=== PATIENT | male | born 1955 | race Caucasian/White ===

== ENCOUNTER 2020-05-23 20:54 | Emergency (ER) | payer MEDICARE, SELFPAY ==
[2020-05-23 21:29] VITALS: BP 114/77; PULSE 67; RESP 16; TEMP 36.8; O2SAT 93; BMI 26.6
--- NOTE | 2020-05-23 21:34 | ED_ITS ---
HPI - Dental/Oral General: Chief complaint: Dental/Oral Stated complaint: dental/left lower jaw Time Seen by Provider: 05/23/20 21:34 History of Present Illness: HPI Narrative: Patient is a 65-year-old male comes to the ED with dental pain. Pain is on right lower jawline located around tooth #28 and 29. He has been having pain there for couple days and says today he woke up and noticed he is having some swelling on his lower jaw. He says his pain is manageable with extra strength Tylenol. He says he is going to contact a dentist and get set up with an appointment. Associated symptoms: Denies fever(s) or odynophagia Review of Systems Const: Denies: fever(s), chills or fatigue Eyes: Denies: change in vision or eye discomfort ENMT: Reports: dental pain; Denies: throat pain, odynophagia, nasal discharge or nasal congestion Card: Denies: chest pain, palpitations, edema, swelling of feet/ankles, dyspn ea on exertion or orthopnea Resp: Denies: dyspnea, productive cough or non-productive cough GI: Denies: abdominal pain, nausea, vomiting, diarrhea, constipation or hematochezia : Denies: flank pain, difficulty urinating, dysuria or hematuria Musc: Denies: neck pain, back pain or extremity swelling Skin/Breast: Denies: rash or new lesions Neuro: Denies: headache(s), numbness in extremities or weakness in extremities Physical Exam Const: COMMON NORMALS: no acute distress, patient oriented x3, healthy appearing and alert GENERAL APPEARANCE: cooperative and comfortable HENMT: COMMON NORMALS: normocephalic HEAD & SCALP: normocephalic MOUTH: Normal oral and palatal mucosa present TEETH & GINGIVA: Yes caries, Yes gingiva abnormal edematous (Around tooth #28 and 29.) and tender (Around tooth #28 and 29.) and Yes poor dentition THROAT: posterior oropharynx normal and uvula midline Eye: COMMON NORMALS: Equal, round and reactive pupils present PUPIL: Yes Equal, round and reactive pupils present Neck/C-Spine: COMMON NORMALS: supple GENERAL: Yes normal visual inspection Resp: COMMON NORMALS: normal respiratory effort, No retractions, No use of accessory muscles and clear to auscultation bilaterally AUSCULTATION: clear to auscultation bilaterally Cardio: COMMON NORMALS: regular rate, regular rhythm, S1 normal heart sound present, S2 normal heart sound present, No gallops present (Cardio), No clicks present (Cardio), No murmurs present (Cardio) and Peripheral pulses 2+ throughout RATE: regular rate RHYTHM: regular rhythm HEART SOUNDS: S1 normal heart sound present and S2 normal heart sound present PERIPHERAL PULSES: Peripheral pulses 2+ throughout GI: COMMON NORMALS: Normal to inspection, nondistended, normoactive bowel sounds present, Soft to palpation, non-tender and no masses PALPATION: Yes Soft to palpation : COMMON NORMALS: Yes no CVA tenderness BLADDER/KIDNEY EXAM: Yes no CVA tenderness Back/Pelvis: COMMON NORMALS: no CVA tenderness Extremity: COMMON NORMALS: normal to inspection Neuro: COMMON NORMALS: patient oriented x3 and moves all extremities SENSORIUM/ORIENTATION: Yes alert Skin: GENERAL SKIN EXAM: dry skin Course Vital Signs: Vital signs: Vital Signs Temperature 98.2 F 05/23/20 21:29 Pulse Rate 67 05/23/20 21:29 Respiratory Rate 16 05/23/20 21:29 Blood Pressure 114/77 05/23/20 21:29 Pulse Oximetry 93 05/23/20 21:29 MDM - Dental/Oral MDM Narrative: Medical decision making narrative: Patient is a 65-year-old male comes to the ED with right lower jaw dental pain. Patient has extensive dental caries and had some gingival edema and tenderness around tooth #28 and 29. Patient was discharged with a prescription of clindamycin and told to take [id number] Tylenol or ibuprofen for pain. He said he is can call dentist this week to get appointment set up. Return to ED precautions given. Patient understood and agreed with plan. Discharge Plan Discharge Patient Disposition: Home Clinical Impression: Pain due to dental caries Condition: Stable Prescriptions: New clindamycin HCl 150 mg capsule 300 mg PO QID 7 Days Qty: 56 RF: 0 Discharge Orders: Discharge Order (Routine); Ordered 05/23/20 Ordered By: Chay Duckworth Referrals: Desire Stallworth MD [Primary Care Provider] - Discharge Diet: Regular Discharge Activity: Resume usual activity Patient Instructions: Dental Caries (ED) Activity Restrictions/Additional Instructions: Call dentist and get set up with an appointment for them to address dental pain. Take medications as prescribed. Take [id number] ibuprofen or Tylenol for any pain. Return to the ER or your medical provider if condition worsens. Please read and understand discharge instructions. If any questions, please ask. Coding Level of Care Code ED Filling Operator for Ryley Fwsydney Exam Comprehensive
[2020-05-23] MEDS: clindamycin 150 mg Capsule 300 MG PO (21:53)
== END 2020-05-23 21:56 | disposition home or self-care (01) ==
PROVIDERS: Emergency Provider Physician Assistant; PCP Family Medicine
DX: K02.9 Dental caries, unspecified (principal); K06.1 Gingival enlargement
CPT/HCPCS: 12345; 99281; 99283

== ENCOUNTER 2020-07-01 09:18 | Emergency (ER) | payer MEDICARE, SELFPAY ==
[2020-07-01] VITALS (7 sets, daily range): BP systolic 104–128; BP diastolic 76–89; PULSE 63–79; RESP 15–18; TEMP 36.3–36.6; O2SAT 94–97; BMI 26.6
--- NOTE | 2020-07-01 09:38 | W.ED.GIBLEED ---
HPI - GI Bleed General: Chief complaint: GI Bleed Stated complaint: BLOOD IN STOOL Time Seen by Provider: 07/01/20 09:36 History of Present Illness: HPI Narrative: 65-year-old male comes in with reported blood in his stool. Patient states that last night he had eaten some chicken noodle soup and about 15 to 30 minutes after eating the soup he threw up everything he had eaten during the day. Patient then had some large bowel movements. This morning at about 5:00 patient had more abdominal cramping and went to the bathroom and had bowel movement with blood in it. Patient had another bowel movement later with another large amount of blood in it. MD complaint: gross hematochezia Associated symptoms: Reports abdominal pain Review of Systems General: Reports: 10 or more systems reviewed and unremarkable except in HPI and below GI: Reports: abdominal pain and hematochezia PFS ED PFSH: Social History (Updated 07/01/20 @ 09:33 by Benjamin Bergeron RN) Smoking and tobacco status: never smoked Alcohol intake: never Substance/Drug Use: current Substance/Drug use frequency: daily Substance/Drug use type: Marijuana Physical Exam Const: COMMON NORMALS: no acute distress and patient oriented x3 GENERAL APPEARANCE: cooperative HENMT: COMMON NORMALS: normocephalic and Normal external nose present HEAD & SCALP: normal to inspection and normocephalic NOSE: Normal external nose present MOUTH: Normal oral and palatal mucosa present Eye: GENERAL EYE: appearance normal, both eyes and all related structures Neck/C-Spine: COMMON NORMALS: full ROM Chest: COMMONS NORMALS: normal inspection of the chest Resp: COMMON NORMALS: normal respiratory effort EFFORT & INSPECTION: Yes able to speak in complete sentences Cardio: COMMON NORMALS: regular rate and regular rhythm RATE: regular rate RHYTHM: regular rhythm GI: COMMON NORMALS: Soft to palpation INSPECTION: Yes normal to inspection AUSCULTATION: Yes normoactive bowel sounds PALPATION: Yes Soft to palpation and Yes Tenderness to palpation present (GI) Details: LLQ RECTAL EXAM: Yes visual inspection normal, Yes normal sphincter tone and Yes heme positive stool Extremity: COMMON NORMALS: normal to inspection Neuro: COMMON NORMALS: patient oriented x3 and moves all extremities Psych: COMMON NORMALS: mental status grossly normal and cooperative Skin: COMMON NORMALS: no rashes or lesions noted GENERAL SKIN EXAM: no rashes or lesions noted Course Vital Signs: Vital signs: Vital Signs Temperature 97.9 F 07/01/20 13:02 Pulse Rate 79 07/01/20 13:02 Respiratory Rate 18 07/01/20 13:02 Blood Pressure 127/89 07/01/20 13:02 Pulse Oximetry 97 07/01/20 13:02 MDM - GI Bleed MDM Narrative: Medical decision making narrative: Patient came to the ER for concerns of blood in stool. Patient reports that he had the episode nausea and vomiting last night and then started having stools with blood in it this morning. On exam patient's abdomen soft with some tenderness in the left lower quadrant. Rectal exam was normal. No signs of sophie blood was noted. Hemoccult was positive though for blood. Differential diagnosis includes but not limited to GI bleed, diverticulitis, polyp, infectious diarrhea. Laboratory values noted a 12,000 white count, CMP was normal, hemoglobin was 17.2 and hematocrit was 51.9. CT scan of the abdomen pelvis noted some diverticulosis but no sign of infection or abscess. Reviewed exam with patient recommended treatment for infectious diarrhea with Cipro and Flagyl. Patient reported understanding and agreed to plan. Also recommended patient have colonoscopy due to blood in stool, patient was agreeable we arrange for a follow-up appointment with surgeon for further evaluation and treatment. Lab Data: Labs: Lab Results 07/01/20 07/01/20 Range/Units 09:50 09:50 WBC 12.9 H (4.0-10.0) 10^3/ uL RBC 5.72 H (4.1-5.3) 10^6/u L Hgb 17.2 H (11.7-16.6) g/dL Hct 51.9 (42.0-52.0) % MCV 90.7 (80-94) fL MCH 30.1 (28.0-34.0) pg MCHC 33.1 (30.0-36.0) g/dL RDW 12.2 (12.1-15.1) % Plt Count 279 (130-400) 10^3/c mm MPV 10.0 (7.4-10.4) fL Neut % (Auto) 75.0 % Lymph % (Auto) 18.8 % Platte % (Auto) 4.5 % Eos % (Auto) 0.9 % Baso % (Auto) 0.4 % Neut # (Auto) 9.69 H (1.8-7.7) 10^3/u L Lymph # (Auto) 2.4 (0.8-4.8) 10^3/u L Platte # (Auto) 0.6 (0.2-0.9) 10^3/u L Eos # (Auto) 0.1 (0.0-0.8) 10^3/u L Baso # (Auto) 0.1 (0.0-0.1) 10^3/u L Nucleated RBC % (a uto) 0 % Nucleated RBCs # 0.0 /100WBC Sodium 139 (136-145) mmol/L Potassium 4.3 (3.5-5.1) mmol/L Chloride 104 (98-107) mmol/L Carbon Dioxide 26 (22-29) mmol/L Anion Gap 13.3 (5-19) BUN 14 (8-23) mg/dL Creatinine 0.8 (0.7-1.2) mg/dL GFR Calculation 97.3 (90-130) mL/min Glucose 112 (65-115) mg/dL Calculated Osmolal ity 289 (285-295) mOsm/k g Calcium 9.5 (8.5-10.5) mg/dL Total Bilirubin 1.6 H (0.15-1.2) mg/dL AST 12 (0-40) U/L ALT 21 (0-41) U/L Alkaline Phosphata se 92 (40-130) IU/L Total Protein 6.8 (6.6-8.7) g/dL Albumin 4.5 (3.5-5.2) g/dL Globulin 2.3 (1.3-4.6) g/dL Discharge Plan Discharge Patient Disposition: Home Clinical Impression: Hematochezia, Infectious diarrhea, Diverticulosis Condition: Stable Prescriptions: New Cipro 500 mg tablet 500 mg PO BID Qty: 10 RF: 0 metronidazole 500 mg tablet 500 mg PO BID Qty: 10 RF: 0 No Action Tylenol 325 mg Tablet 325 - 650 mg PO Q6H PRN (Reason: Pain) RF: 0 Discharge Orders: Discharge ED (Routine); Ordered 07/01/20 Ordered By: Willy Mckenna Referrals: Desire Stallworth MD [Primary Care Provider] - Discharge Diet: Usual diet Discharge Activity: Increase activity as tolerated Activity Restrictions/Additional Instructions: Drink plenty of fluids. Take medications as directed. Healthy diet and activity. Follow-up with surgeon for colonoscopy for further evaluation of blood in stool. Return to the emergency department for new concerns. Coding Level of Care Code ED Press Breaker for Ryley Fwd Exam Comprehensive
[2020-07-01] MEDS: famotidine 20 mg/2 mL INJ 40 MG IVP (10:08)
[2020-07-01] MEDS: sodium chloride 0.9% 500 ML 999 ML IV (10:08)
[2020-07-01 10:42] LABS: Basophils # 0.1 10^3/uL (0.0-0.1); Basophils % 0.4 %; Eosinophils # 0.1 10^3/uL (0.0-0.8); Eosinophils % 0.9 %; Hematocrit 51.9 % (42.0-52.0); Hemoglobin 17.2 g/dL (11.7-16.6); Lymphocytes # 2.4 10^3/uL (0.8-4.8); Lymphocytes % 18.8 %; Mean Corpuscular HGB Conc 33.1 g/dL (30.0-36.0); Mean Corpuscular Hemoglobin 30.1 pg (28.0-34.0); Mean Corpuscular Volume 90.7 fL (80-94); Monocytes # 0.6 10^3/uL (0.2-0.9); Monocytes % 4.5 %; Neutrophils # 9.69 10^3/uL (1.8-7.7); Nucleated Red Blood Cells % 0 %; Platelet Count 279 10^3/cmm (130-400); Red Blood Count 5.72 10^6/uL (4.1-5.3); Red Cell Distribution Width 12.2 % (12.1-15.1); White Blood Count 12.9 10^3/uL (4.0-10.0)
--- NOTE | 2020-07-01 10:47 | CTR_ITS ---
PROCEDURE INFORMATION: Exam: CT Abdomen And Pelvis With Contrast Exam date and time: 07/01/2020 11:33 AM Age: 65 years old Clinical indication: Abdominal pain; Colic; Prior surgery; Surgery date: 6+ months; Surgery type: Hernia x 2; Additional info: Blood in stool, abd pain TECHNIQUE: Imaging protocol: Computed tomography of the abdomen and pelvis with intravenous contrast. Radiation optimization: All CT scans at this facility use at least one of these dose optimization techniques: automated exposure control; mA and/or kV adjustment per patient size (includes targeted exams where dose is matched to clinical indication); or iterative reconstruction. Contrast material: OMNIPAQUE 300; Contrast volume: 95 ml; Contrast route: INTRAVENOUS (IV); COMPARISON: CT abdomen pelvis w con* [id number] 10/30/2016 1:30 PM RADIATION DOSE METRICS: Total DLP (mGy-cm): 640.29 FINDINGS: Liver: Normal. No mass. Gallbladder and bile ducts: Normal. No calcified stones. No ductal dilation. Pancreas: Normal. No ductal dilation. Spleen: Normal. No splenomegaly. Adrenal glands: Normal. No mass. Kidneys and ureters: There are 2 subcentimeter benign cysts in the right kidney. There is no hydronephrosis or renal calcification. Stomach and bowel: There is prominent sigmoid diverticulosis. There is no evidence of acute diverticulitis. Appendix: No evidence of appendicitis. Intraperitoneal space: Unremarkable. No free air. No significant fluid collection. Vasculature: Calcifications are present in the aorta but there is no aneurysm. Lymph nodes: Unremarkable. No enlarged lymph nodes. Urinary bladder: Unremarkable as visualized. Reproductive: Unremarkable as visualized. Bones/joints: Degenerative changes are present in the spine with sclerosis and joint space narrowing. Soft tissues: The patient has undergone inguinal hernia repair. There is no evidence of hernia recurrence. CT/CT abdomen pelvis w con* [id number] IMPRESSION: 1. Prominent sigmoid diverticulosis. 2. No acute abnormalities are seen. COMMENTS: Consistent with the [employer]'s Incidental Findings Committee white paper (J Am Bob Radiol 2018): Any incidental renal lesion less than 1 cm or classified as too small to characterize, or any incidental cystic renal lesion characterized as simple-appearing, is likely benign. No follow-up imaging is recommended for these lesions per consensus recommendations based on imaging criteria. Radiation Dose CTDIVOL = (mGy): DLP = 640.29 (mGy-cm)
[2020-07-01 11:04] LABS: Alanine Aminotransferase 21 U/L (0-41); Albumin Level 4.5 g/dL (3.5-5.2); Alkaline Phosphatase 92 IU/L (40-130); Anion Gap 13.3 (5-19); Aspartate Amino Transferase 12 U/L (0-40); Blood Urea Nitrogen 14 mg/dL (8-23); Calcium 9.5 mg/dL (8.5-10.5); Carbon Dioxide 26 mmol/L (22-29); Chloride 104 mmol/L (98-107); Creatinine Clr Calc Pharmacy 99.0623; Globulin 2.3 g/dL (1.3-4.6); Glomerular Filtration Rate 97.3 mL/min (90-130); Glucose 112 mg/dL (65-115); Osmolality Calculated 289 mOsm/kg (285-295); Potassium 4.3 mmol/L (3.5-5.1); Sodium 139 mmol/L (136-145); Total Bilirubin 1.6 mg/dL (0.15-1.2); Total Protein 6.8 g/dL (6.6-8.7)
--- NOTE | 2020-07-01 11:13 | PC.NURSE ---
Voided 525 mls clear pale color urine
[2020-07-01] MEDS: iohexol 300 mg/mL 100 mL Btl IV (12:01)
[2020-07-01] MEDS: ciprofloxacin 500 mg Tablet PO (12:58)
[2020-07-01] MEDS: metroNIDAZOLE 500 MG Tablet PO (12:58)
--- NOTE | 2020-07-03 08:25 | DCPLANNER ---
brand protection manager had message to schedule a follow up appointment for patient with general surgery. brand protection manager emailed both Zayra and Zonia at [facility] General Surgery patients information. Patients information will be printed and reviewed, clinic will call patient with appointment information.
--- NOTE | 2020-07-06 10:57 | DCPLANNER ---
Patient has a follow up appointment scheduled for Friday, July 17, 2019 at 11:00 with general surgery with Dr. Colunga. Clinic will call patient with appointment information.
--- NOTE | 2020-08-02 15:18 | DCPLANNER ---
Patient had a follow up appointment scheduled for 07.17.20 with general surgery - patient did attend the appointment.
== END 2020-07-01 13:09 | disposition home or self-care (01) ==
PROVIDERS: Emergency Provider Nurse Practitioner Family; PCP Family Medicine
DX: K57.91 Diverticulosis of intestine, part unspecified, without perforation or abscess with bleeding (principal); A09 Infectious gastroenteritis and colitis, unspecified
CPT/HCPCS: 12345; 74177; 80053; 82272; 85025; 96361; 96374; 96375; 99283; J3490; J7040; Q9967

== ENCOUNTER → 2020-08-04 09:18 | Outpatient (BNVA) | payer MEDICARE, SELFPAY | PROVIDERS: PCP Family Medicine; Visit Provider Surgery | DX: K62.5 Hemorrhage of anus and rectum (principal) | CPT/HCPCS: 87635 ==

== ENCOUNTER 2020-08-09 07:57 | Day surgery (SDC) | payer MEDICARE, SELFPAY ==
[2020-08-07 09:54] VITALS: BMI 26.6
[2020-08-09 08:09] VITALS: BP 138/96; PULSE 83; RESP 16; TEMP 36.9; O2SAT 98
[2020-08-09] MEDS: sodium chloride 0.9% 1,000 ML 30 ML IV (08:21)
--- NOTE | 2020-08-09 09:31 | ANES.PREANE2 ---
Pre-Anesthetic Assessment Pre-Anesthetic Assessment: Height/Weight: Height 1.75 m Weight 81.647 kg Temp Pulse Resp BP Pulse Ox 98.5 F 83 16 138/96 98 08/09/20 08:09 08/09/20 08:09 08/09/20 08:09 08/09/20 08:09 08/09/20 08:09 Preop Diagnosis: Bleeding per rectum Proposed Procedure: Operation Date: 08/09/20 09:00 Proposed Procedures p Colonoscopy 13611 K62.5(Not Applicable) - Scott Colunga MD Was Beta Irvin taken within 24 hours: N/A Last intake: Intake Last Liquid Date 08/08/20 Last Liquid Time 18:00 Last Solid Date 08/07/20 Last Solid Time 18:00 Social: Social History: No alcohol Exam: Pre-Anes Outpt Exam: alert, oriented x 3 and regular rate & rhythm Additional Exam Findings (including area of procedure): rhonchi Airway: Submandibular: WNL Cervical ROM: WNL MP: 2 Additional comments: poor dentition, missing several Pulmonary: Pulmonary: COPD Anesthetic Plan: ASA status: 3 Anesthesia: MAC Risk of > 500 ml blood loss (7ml/kg in children): No Meds/Allergies Current Medications: Current Medications Generic Name Dose Route Start Last Admin Trade Name Freq PRN Reason Stop Dose Admin Sodium Chloride 1,000 mls @ 30 ml s/hr 08/09/20 08:15 08/09/20 08:21 Sodium Chloride 0.9% IV 08/10/20 08:14 30 mls/hr .Q24H JOHANA Administration PFSH Anesthesia PFSH: Family History Brother Stroke Father Stroke Diabetes Other CAD (coronary artery disease) Denies family history of Anesthesia complication Bleeding disorder Cancer Hypertension Social History Smoking and tobacco status: never smoked Alcohol intake: never Household members: spouse Marital status: Current occupational status: disabled History of recent travel: No Data Anesthesia Cardiac Studies: No Data to Display
--- NOTE | 2020-08-09 10:11 | W.PM.OPSUD ---
Surgery/Procedure H&P Update DATE OF PROCEDURE: August 09, 2020 DATE H&P PERFORMED: 07/17/20 H&P UPDATE INFORMATION: I have reviewed H&P completed within last 30 days, I have examined patient prior to procedure and No changes to prior documentation PREOP DIAGNOSIS: Bleeding per rectum PRIMARY INDICATION FOR PROCEDURE: The same PLANNED PROCEDURE: Operation Date: 08/09/20 09:00 Proposed Procedures p Colonoscopy 59274 K62.5(Not Applicable) - Scott Colunga MD
[2020-08-09 11:15] VITALS: BP 110/74; PULSE 67; RESP 18; TEMP 36.5; O2SAT 97
[2020-08-09 11:33] VITALS: BP 122/89; PULSE 66; RESP 18; O2SAT 98
--- NOTE | 2020-08-09 12:16 | ANE.PACU2 ---
Inpatient post-anesthesia follow up: Airway intact: Yes Vital signs: Temperature 97.7 F Pulse Rate 66 Respiratory Rate 18 Blood Pressure 122/89 Pulse Oximetry 98 Oxygen Delivery Me thod Room Air Oxygen Flow Rate Fraction of Inspir ed Oxygen Hydration adequate: Yes Nausea and vomiting: No Pain level: 1 Mental status: Baseline
== END 2020-08-09 11:44 | disposition home or self-care (01) ==
PROVIDERS: PCP Family Medicine; Visit Provider Surgery
PROC: 0DJD8ZZ Inspection of Lower Intestinal Tract, Via Natural or Artificial Opening Endoscopic (ICD-10-PCS; CPT 45378; principal; 2020-08-09 09:00)
DX: K62.5 Hemorrhage of anus and rectum (principal); J44.9 Chronic obstructive pulmonary disease, unspecified; K57.30 Diverticulosis of large intestine without perforation or abscess without bleeding
CPT/HCPCS: 12345; 45378; J2704; J7030

== ENCOUNTER → 2025-06-27 10:53 | Outpatient (BNVA) | payer MEDICARE, SELFPAY | PROVIDERS: PCP Family Medicine Adult Medicine; Visit Provider Family Medicine | DX: Z13.6 Encounter for screening for cardiovascular disorders (principal); Z12.5 Encounter for screening for malignant neoplasm of prostate | CPT/HCPCS: 80053; 80061; 83036; 85025; G0103 ==